=== PATIENT | male | born 1960 | race Hispanic/Latino ===

== ENCOUNTER 2018-01-15 14:46 | Emergency (ER) | payer BC ==
--- OUTSIDE RECORDS SUMMARY | 2018-01-15 14:48 | XMS REPORT | Clinical Summary ---
:1960 Author Organization [facility] Address [address] [place] [address] Care Team Providers Name Role Phone Asked, No Pcp Primary Care Provider Unavailable Allergies No Known Allergies Current Medications Prescription Sig. Disp. Refills Start Date End Date Status meloxicam (MOBIC) 15 Take 1 tablet 30 tablet 1 03/28/2017 03/28/2018 Active mg tablet (15 mg total) by mouth daily. traMADol (ULTRAM) 50 Take 1 tablet 40 tablet 1 04/09/2017 05/09/2017 mg tablet (50 mg total) by mouth every 6 (six) hours as needed for moderate pain for up to 30 days. Active Problems Not on file Encounters Date Type Specialty Care Team Description 12/27/2017 Hospital Encounter Radiology Rikki Sarabia W., MD localized, primary, knee, right 12/27/2017 Hospital Encounter Radiology Rikki Sarabia W., MD localized, primary, knee, right 12/27/2017 Ancillary Orders Orthopedic Surgery Rikki Sarabia W., MD localized, primary, knee, right 11/06/2017 Procedure Pass Radiology 11/06/2017 Transcribe Orders Orthopedic Rikki Galindo W., MD localized, primary, knee, right (Primary Dx) 11/05/2017 Office Visit Orthopedic Surgery Rikki Sarabia Primary osteoarthritis of right knee (Primary Dx); MD Ev Primary osteoarthritis of both knees 04/22/2017 Office Visit Orthopedic Surgery Rikki Sarabia Primary osteoarthritis MD Ev of both knees (Primary Dx) 04/09/2017 Refill Orthopedic Surgery Cherelle Whittaker MA 03/28/2017 Office Visit Orthopedic Surgery Rikki Sarabia Primary osteoarthritis of both knees (Primary Dx); MD Ev Chronic pain of right knee after 01/14/2017 Family History Medical History Relation Name Comments Heart disease Other SIBLINGS Relation Name Status Comments Father Mother Alive Other SIBLINGS Alive Social History Tobacco Use Types Packs/Day Years Used Date Never Smoker Smokeless Tobacco: Current User Chew Alcohol Use Drinks/Week oz/Week Comments Yes Sex Assigned at Date Recorded Not on file Last Filed Vital Signs Vital Sign Reading Time Taken Blood Pressure - - Pulse - - Temperature - - Respiratory Rate - - Oxygen Saturation - - Inhaled Oxygen Concentration - - Weight 107 kg (235 lb) 11/05/2017 1:38 PM INPATIENT CODER Height 182.9 cm (6') 11/05/2017 1:38 PM INPATIENT CODER Body Mass Index 31.87 11/05/2017 1:38 PM INPATIENT CODER Plan of Treatment Health Maintenance Due Date Last Done Comments COLON CANCER SCREENING 2010 SHINGRIX VACCINE (#1) 2010 INFLUENZA VACCINE 04/02/2018 Procedures Procedure Name Priority Date/Time Associated Diagnosis Comments AK ARTHROCENTESIS Routine 03/28/2017 1:48 Primary Results for this ASPIR&/INJ MAJOR PM CDT osteoarthritis of procedure are in JT/BURSA W/O US both knees the results section. after 01/14/2017 Results MRI Signature Knee Right (12/27/2017 3:40 PM) Specimen Performing Laboratory [facility] [address] [place] [address] Narrative EXAMINATION:MRI SIGNATURE KNEE RIGHT CLINICAL HISTORY:M17.11 Unilateral primary osteoarthritisright knee, osteoarthritis of the right knee TECHNIQUE:Multiplanar multisequence MR imaging of theright knee was performed without contrast. Specialized protocol for custom prosthesis modeling and presurgical planning was utilized. COMPARISON:None. IMPRESSION: 1.There are advanced degenerative osteoarthritic changes of the knee joint. 2.Limited images of the right hip and ankle do not demonstrate any significant abnormality. [facility]-[id number] Procedure Note Interface, Radiology Results Incoming - 12/27/2017 3:47 PM CDT EXAMINATION: MRI SIGNATURE KNEE RIGHT CLINICAL HISTORY: M17.11 Unilateral primary osteoarthritis right knee, osteoarthritis of the right knee TECHNIQUE: Multiplanar multisequence MR imaging of the right knee was performed without contrast. Specialized protocol for custom prosthesis modeling and presurgical planning was utilized. COMPARISON: None. IMPRESSION: 1. There are advanced degenerative osteoarthritic changes of the knee joint. 2. Limited images of the right hip and ankle do not demonstrate any significant abnormality. [facility]-[id number] XR Rays No Charge MRI (12/27/2017 2:54 PM) Specimen Performing Laboratory [facility] [address] [place] [address] Narrative EXAMINATION:X RAYS NO CHARGE MRI CLINICAL HISTORY:M17.11 Unilateral primary osteoarthritisright knee, osteoarthritis of the right knee COMPARISON:None. FINDINGS: No radiopaque abnormalities are noted in the orbits. IMPRESSION: Negative study. [facility]-[id number] Procedure Note Hm Interface, Radiology Results Incoming - 12/27/2017 3:05 PM CDT EXAMINATION: X RAYS NO CHARGE MRI CLINICAL HISTORY: M17.11 Unilateral primary osteoarthritis right knee, osteoarthritis of the right knee COMPARISON: None. FINDINGS: No radiopaque abnormalities are noted in the orbits. IMPRESSION: Negative study. [facility]-[id number] Large Joint Arthrocentesis (03/28/2017 1:48 PM) Narrative Rikki Sarabia MD 03/28/20171:48 PM Large Joint Arthrocentesis Consent given by: patient Timeout: Immediately prior to procedure a time out was called to verify the correct patient, procedure, equipment, client application support specialist and site/side marked as required Supporting Documentation Indications: pain and joint swelling Procedure Details Preparation: Patient was prepped and draped in the usual sterile fashion Location: knee - Bilateral knee Right side: Right knee medications administered: 80 mg methylPREDNISolone acetate 40 mg/mL Left side: Left knee medications administered: 80 mg methylPREDNISolone acetate 40 mg/mL XR Knee 4+ Vw Bilateral (03/28/2017 1:23 PM) Specimen Performing Laboratory [facility] [address] [place] [address] Narrative 4 views (AP, PA, Merchants,lateral) of the bilateral knee reveal no evidence of fracture, dislocation or any acute osseous abnormalities.There is advanced lateral compartment predominant arthritic changes seen. after 01/14/2017 Insurance Payer Benefit Plan / Group Subscriber ID Type Phone Address BCBS BCBS CHOICE PPO/FEDERAL EMPL PPO xxxxxxxxxxxx PPO BCBS BCBS OUT OF STATE xxxxxxxxxxxx PPO [phone] [address]
[2018-01-15] MEDS ORDERED: TETANUS & DIPHTHERIA TOX,ADULT 0.5 ML VIAL ONE (15:19)
[2018-01-15 15:29] LABS: Absolute Lymphocytes (CBC) 2.1 K/uL (0.7-4.9); Absolute Monocytes 0.3 K/uL (0.1-1.3); Absolute Neutrophil 5.7 K/uL (1.8-8.0); Hematocrit 40.5 % (39.6-49.0); Lymphocytes % 25.3 % (15.3-44.8); MCH 24.1 pg (27.0-35.0); MCV 77.9 fL (80-100); MPV 6.9 fL (7.6-11.3); Monocytes % 4.1 % (3.3-12.3)
[2018-01-15 15:40] LABS: Potassium 3.3 mEq/L (3.6-5.0)
[2018-01-15] MEDS ORDERED: MIDAZOLAM HCL 2 MG/2 ML INJ ONE (15:46)
[2018-01-15] MEDS ORDERED: NA CHLORIDE 0.9% 1,000 ML ONE (15:49)
[2018-01-15] MEDS ORDERED: MORPHINE 4 MG/ML SYR ONE ×2 (15:49→16:29)
[2018-01-15] MEDS ORDERED: ONDANSETRON 4 MG/2 ML VIAL ONE (15:49)
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
[2018-01-15] MEDS ORDERED: FENTANYL CITR 100 MCG/2 ML ONE (16:46)
--- NOTE | 2018-01-15 17:12 | RAD REPORT ---
EXAM DESCRIPTION: RAD - Chest Single View - 01/15/2018 4:36 pm CLINICAL HISTORY: Pneumothorax, chest tube placement COMPARISON: January 15 TECHNIQUE: AP portable chest image was obtained supine positioning 1626 hours . FINDINGS: Lung volumes are very low. Chest tube has been placed at the right base. No pneumothorax i dentifiable. The patient's pneumothorax was prior dominantly anterior which is difficult to monitor o n portable imaging. Trachea is midline. Cardiomediastinal silhouette within normal limits for exam li mitations. No measurable pleural fluid collection. Right-sided shoulder and neck subcutaneous emphyse ma have not changed from earlier study. No acute aortic findings suspected. IMPRESSION: Right chest tube has been placed into the right base. No pneumothorax is identified. The patient's pneumothorax was predominantly anterior in positioning. This is difficult to track on portable imaging.
--- NOTE | 2018-01-15 17:21 | EKG ---
Test Date: 2018-01-15 Test Time: 14:57:09 Engineer Technical Staff: JARAD MEASUREMENT RESULTS: Intervals: Rate: 100 AK: 142 QRSD: 80 QT: 358 QTc: 461 [place]: P: 53 AK: 142 QRS: -31 T: 24 INTERPRETIVE STATEMENTS: Normal sinus rhythm Left axis deviation Inferior infarct, age undetermined Abnormal ECG Compared to ECG 04/03/2015 23:50:23 Left-axis deviation now present Myocardial infarct finding now present Electronically Signed On 01-15-18 17:19:57 CDT by Jorgito Baeza
[2018-01-15 17:43] VITALS: O2SAT 100
[2018-01-15 17:45] VITALS: BP 128/87; TEMP 97.8
--- NOTE | 2018-01-15 18:06 | RAD REPORT ---
EXAM DESCRIPTION: Buddy Single View01/15/2018 3:34 pm CLINICAL HISTORY: Chest pain COMPARISON: none FINDINGS: Subcutaneous emphysema is present along the upper right chest and neck. The patient's kno wn pneumothorax is not well visualized on this exam secondary to positioning and technique. Comminuted fracture involves the mid right clavicle. Displacement of the fracture fragments is seen. Nondisplaced and displaced fractures involve upper right ribs. Haziness involving the right lung represents contusion. The heart is normal size. The mediastinum appears unremarkable
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
--- NOTE | 2018-01-16 04:12 | OP ---
Date of Procedure: 01/15/2018 Surgeon: Marlo Maldonado MD Preoperative Diagnosis: Right pneumothorax with right pulmonary contusion, multiple rib fractures, r ight and left side, clavicle fracture, pelvic fracture, lumbar spine fracture. Postoperative Diagnosis: Right pneumothorax with right pulmonary contusion, multiple rib fractures, right and left side, clavicle fracture, pelvic fracture, lumbar spine fracture. Procedures: Placement of a chest tube on the right side. Anesthesia: Sedation by the ER physician and local anesthetic by me. Description Of Procedure: The patient was explained the benefits and risks of right chest tube place ment. A time-out was called. Right chest was prepped and draped in a sterile fashion. The area bet ween the fourth and fifth intercostal space was infiltrated. We made sure the chest tube was advance d to keep the chest tube away from the area of the clavicle and subclavian region. We proceeded then to using a Rosalinda clamp, proceeded to puncture just above the rib. Chest tube was placed then withou t assistance. A doty of air was obtained. The tube was connected to water-seal suction and secured in place with a nylon and covered with sterile dressings. No air leak. The patient tolerated the pr ocedure well. Oxygen saturation is 100%. The patient verbalizing to us that he is feeling okay and good. Once again, this patient has been pending the trauma comfort service has been called, we are e xpecting them any moment here. MARIA A Voice ID: [id number] Report ID: [id number]
== END 2018-01-15 17:18 | disposition short-term general hospital (02) ==
LOC: ER 14:46
PROC: 0W9930Z Drainage of Right Pleural Cavity with Drainage Device, Percutaneous Approach (ICD-10-PCS; principal; 2018-01-15)
DX: J93.9 Pneumothorax, unspecified (principal); S22.43XA Multiple fractures of ribs, bilateral, initial encounter for closed fracture; S32.029A Unspecified fracture of second lumbar vertebra, initial encounter for closed fracture; S32.039A Unspecified fracture of third lumbar vertebra, initial encounter for closed fracture; S32.049A Unspecified fracture of fourth lumbar vertebra, initial encounter for closed fracture; S32.9XXA Fracture of unspecified parts of lumbosacral spine and pelvis, initial encounter for closed fracture; V49.49XA Driver injured in collision with other motor vehicles in traffic accident, initial encounter
CPT/HCPCS: 36415; 70450; 71045; 71260; 72125; 74177; 80048; 85025; 86850; 86900; 86901; 90714; 93005; 99291; J2250; J2405; J3010; J7030; Q9967